=== PATIENT | female | born 1945 | race Caucasian/White ===

== ENCOUNTER 2016-12-02 03:54 | Emergency (ER) | payer OTHER ==
[~2016-12-02] VITALS: Ht 165.1 cm; Wt 68.0 kg
[2016-12-02] MEDS ORDERED: PAROXETINE CR25 MG (04:13)
[2016-12-02] MEDS ORDERED: METFORMIN HCL500 M3 PO (04:14)
[2016-12-02] MEDS ORDERED: SIMVASTATIN40 M1 PO (04:14)
[2016-12-02] MEDS ORDERED: AMLODIPINE BESY10 M1 PO (04:15)
[2016-12-02] MEDS ORDERED: VITAMIN C100 M2 (04:16)
[2016-12-02] MEDS ORDERED: ASPIRIN81 M4 PO (04:16)
[2016-12-02] MEDS ORDERED: VITAMIN D1000 UNIT PO (04:17)
[2016-12-02] MEDS ORDERED: VITAMIN B-121000 MC3 PO (04:18)
--- NOTE | 2016-12-02 04:38 | ED HEAD/FACIAL INJ COMPLAINT ---
History of Present Illness General Chief Complaint: Facial or Head Injury Stated Complaint: HEAD AND NECK INJURY AFTER ROLLING/FALLING OUT OF Source: patient, family, old records Exam Limitations: no limitations Vital Signs & Intake/Output Vital Signs & Intake/Output Vital Signs Date Time Temp Pulse Resp B/P Pulse O2 O2 Flow FiO2 Ox Delivery Rate 12/02 0708 97.0 80 18 150/67 96 Room Air 12/02 0419 Room Air 12/02 0408 97.8 83 20 182/81 98 Room Air Allergies Coded Allergies: NO KNOWN ALLERGIES (10/07/13) Reconcile Medications Amlodipine Besylate 10 MG TABLET 1 TAB PO DAILY HTN (Reported) Ascorbic Acid (Vitamin C) 100 MG TABLET SUPPLEMENT (Reported) Aspirin (Aspirin*) 81 MG TAB.CHEW 1 TAB PO DAILY HEART (Reported) Cholecalciferol (Vitamin D3) (Vitamin D) 1,000 UNIT TABLET 1 TAB PO DAILY SUPPLEMENT (Reported) Cyanocobalamin (Vitamin B-12) 1,000 MCG TABLET 1 TAB PO DAILY SUPPLEMENT ( Reported) Metformin HCl 500 MG TABLET 1 TAB PO BID PRE-DIABETES (Reported) Paroxetine HCl (Paroxetine Cr) 25 MG TAB.ER.24H MENTAL HEALTH (Reported) Simvastatin (Simvastatin*) 40 MG TABLET 1 TAB PO QPM HYPERLIPIDEMIA (Reported ) Triage Note: PT TO TRIAGE S/P FALLING OUT OF BED AND LANDING ON HEAD/NECK. PT DENIES DIZZINESS/BLURRED VISION. Triage Nurses Notes Reviewed? yes Onset: Just prior to arrival Severity: moderate Location: frontal Method of Injury: direct blow, fall Loss of Consciousness: no loss of consciousness Associated Symptoms: nausea/vomiting LMP (ages 10-50): post menopausal : No Patient currently breastfeeds: No HPI: Prior to admission patient fell out of bed striking her left forehead on the floor. She complains of left forehead scalp sharp severe pain associated with nausea left-sided neck pain constant. There was no loss consciousness fever chills vomiting diarrhea abdominal pain chest pain shortness of breath dysuria rash bleeding change in motor sensory function change in bowel bladder habit. Past History Travel History Traveled to [place] past 21 day No Medical History Any Pertinent Medical History? see below for history Cardiovascular: hyperlipidemia Musculoskeletal: osteoporosis, L HIP FX Endocrine: PRE-DIABETES Surgical History Surgical History: non-contributory Psychosocial History What is your primary language Slovenian Tobacco Use: Refused to answer Family History Hx Contributory? No Review of Systems Review of Systems Constitutional: Reports: no symptoms. EENTM: Reports: no symptoms. Respiratory: Reports: no symptoms. Cardiovascular: Reports: no symptoms. GI: Reports: see HPI, nausea. Genitourinary: Reports: no symptoms. Musculoskeletal: Reports: see HPI, neck pain. Skin: Reports: no symptoms. Neurological/Psychological: Reports: see HPI, headache. Hematologic/Endocrine: Reports: no symptoms. Immunologic/Allergic: Reports: no symptoms. All Other Systems: Reviewed and Negative Physical Exam Physical Exam General Appearance: well developed/nourished, mild distress Head: atraumatic, normal appearance, tenderness Eyes: Bilateral: normal appearance, PERRL, EOMI. Ears, Nose, Throat: normal pharynx, normal ENT inspection, hearing grossly normal Neck: normal inspection, supple, limited range of motion, tender lateral Respiratory: normal breath sounds, chest non-tender, no respiratory distress, quiet respiration, lungs clear Cardiovascular: regular rate/rhythm, normal peripheral pulses, norml femoral pulses equa Gastrointestinal: normal bowel sounds, soft, non-tender, no organomegaly Back: normal inspection Extremities: normal inspection, normal range of motion, no edema Psychiatric: awake, alert, oriented x 3 Cranial Nerves: normal hearing, normal speech, PERRL Coordination/Gait: normal finger to nose Motor/Sensory: no motor/sensory deficits Reflexes: 2+: bicep (R), bicep (L). Skin: intact, normal color, warm/dry Lymphatic: no anterior cervical asha Progress Differential Diagnosis: c-spine injury, ICH, skull fracture Plan of Care: Orders Procedure Date/time Status PROTHROMBIN TIME 12/02 525 Complete COMPREHENSIVE METABOLIC PANEL 12/02 525 Complete CBC WITHOUT DIFFERENTIAL 12/02 525 Complete Current Medications Sig/Mariza Start time Last Medication Dose Stop Time Status Admin Ondansetron HCl 4 MG ONCE ONE 12/02 814 UNVr (Zofran) 12/02 0816 Laboratory Tests 12/02/16 0542: Anion Gap 10, Estimated GFR > 60, BUN/Creatinine Ratio 21.4, Glucose 148 H, Calcium 10.4 H, Total Bilirubin 0.7, AST 29, ALT 25, Alkaline Phosphatase 95, Total Protein 7.7, Albumin 4.4, Globulin 3.3, Albumin/Globulin Ratio 1.3, PT 10.1, INR 0.96, CBC w Diff NO MAN DIFF REQ, RBC 4.43, MCV 89.1, MCH 29.5, RDW 13.9, MPV 6.6 L, Gran % 78.1 H, Lymphocytes % 15.2 L, Monocytes % 4.6, Eosinophils % 1.5, Basophils % 0.6, Absolute Granulocytes 9.7 H, Absolute Lymphocytes 1.9, Absolute Monocytes 0.6, Absolute Eosinophils 0.2, Absolute Basophils 0.1, PUBS MCHC 33.0 Diagnostic Imaging: Viewed by Me: CT Scan. Discussed w/RAD: CT Scan. Radiology Impression: There is no acute intracranial hemorrhage. There is an acute fracture of the left occipital condyle and an intra-articular fracture at the posterior margin of the left C1 lateral mass. Small bone fragments encroach on the left arcuate foramen, raising the concern for a left vertebral artery injury. If there are clinical symptoms of acute ischemia within the posterior circulation then a dedicated CT angiogram of the neck should be obtained for better anatomic characterization of the arterial anatomy., At the site of the known fracture of the left C1 lateral mass there is craniocaudal flattening of the profile of the distal V3 segment of the left vertebral artery as it passes through the arcuate foramen. No evidence of acute arterial dissection, occlusion , or distal embolic disease. Due to the presence of patient motion the degree of stenosis at the carotid bifurcations related to a heavily calcified atheromatous plaque cannot be accurately assessed on this examination. There is mild to moderate narrowing of the cavernous segment of the left internal carotid artery. Comments: Accepted by Dr. Liu RICKS as modified trauma. Departure Departure Time of Disposition: 800 Disposition: OTHER [facility] (ACUTE) Condition: Stable Clinical Impression Primary Impression: Closed C1 fracture Qualifiers: Encounter type: initial encounter Fracture morphology: unspecified fracture morphology Fracture alignment: displaced Qualified Code: S12.000A - Unspecified displaced fracture of first cervical vertebra, initial encounter for closed fracture Secondary Impressions: Unspecified occipital condyle fracture, initial encounter for closed fracture Referrals: POP TALBOT MD (PCP/Family) Departure Forms: Customer Survey General Discharge Information Critical Care Note Critical Care Note Critical Care Time: 30-74 min (35)
--- NOTE | 2016-12-02 05:11 | CT SCAN REPORT ---
EXAMINATION: CT HEAD AND CERVICAL SPINAL. CLINICAL INFORMATION: Fall. Left frontal head strike. Nausea, vomiting, and headache. COMPARISON: No relevant prior imaging available. TECHNIQUE: Mutton Puncher images were obtained. A CT acquisition of the head and cervical spinal was performed without the intravenous administration of contrast. Data was reformatted into multiplanar images at the acquisition workstation. DLP: 998.76 mGy-cm. FINDINGS: Head: There is no acute intracranial hemorrhage or abnormal extra-axial collection. Lateral and third ventricles are normal. No hydrocephalus. There are numerous ill-defined foci of hypoattenuation within the periventricular white matter that most likely represent a chronic manifestation of small vessel ischemia. Garcia-white matter differentiation is grossly preserved and there is no evidence of acute territorial infarct. There is an acute minimally impacted fracture of the left occipital condyle and a horizontally oriented fracture through the posterior margin of the left lateral C1 mass at the atlantooccipital joint best illustrated on axial image 7 of 256 series 7. Small bone fragments appear to encroach on the left arcuate foramen. The calvarium is otherwise intact. There is no mastoid or middle ear effusion. Mild paranasal sinus disease within the maxillary sinuses and ethmoid air cells. Globes and orbits are symmetric. Cervical spine: There is anatomic alignment and position of the vertebral bodies and posterior elements of the cervical spine in the sagittal dimension. Vertebral body heights are preserved. There is no abnormal prevertebral soft tissue swelling. There is advanced degenerative facet arthrosis at multiple levels within the cervical spine. Grossly no evidence of canal compromise. Limited visualization of the soft tissues of the neck reveals heavily calcified atheromatous plaque involving both carotid bifurcations. Lung apices are clear. No pathologically enlarged cervical lymph nodes. IMPRESSION: There is no acute intracranial hemorrhage. There is an acute fracture of the left occipital condyle and an intra-articular fracture at the posterior margin of the left C1 lateral mass. Small bone fragments encroach on the left arcuate foramen, raising the concern for a left vertebral artery injury. If there are clinical symptoms of acute ischemia within the posterior circulation then a dedicated CT angiogram of the neck should be obtained for better anatomic characterization of the arterial anatomy.
[2016-12-02 05:53] LABS: ABSOLUTE BASOPHIL COUNT 0.1 /CUMM (0.0-0.2); ABSOLUTE EOSINOPHIL COUNT 0.2 /CUMM (0.0-0.7); ABSOLUTE GRANULOCYTE CT 9.7 /CUMM (1.4-6.5); ABSOLUTE LYMPH COUNT 1.9 /CUMM (1.2-3.4); ABSOLUTE MONOCYTE COUNT 0.6 /CUMM (0.10-0.60); BASOPHIL % 0.6 % (0.0-2.0); EOSINOPHIL % 1.5 % (0-5); HEMATOCRIT 39.5 % (37-47); MEAN CORPUSCULAR HGB 29.5 PG (27.0-31.0); MEAN CORPUSCULAR VOLUME 89.1 FL (81.0-99.0); MEAN PLATELET VOLUME 6.6 FL (7.4-10.4); PLATELET COUNT 228 /CUMM (130-400); RBC DISTRIBUTION WIDTH 13.9 % (11.5-14.5); RED BLOOD CELL CT 4.43 /CUMM (4.20-5.40); WHITE BLOOD CELL COUNT 12.5 /CUMM (4.8-10.8)
[2016-12-02 05:56] LABS: GRANULOCYTE % 78.1 % (42.2-75.2)
[2016-12-02 05:57] LABS: PT 10.1 SEC (9.4-12.5)
--- NOTE | 2016-12-02 07:52 | CT SCAN REPORT ---
EXAMINATION: CT ANGIOGRAM NECK CLINICAL INFORMATION: Question left vertebral artery injury. COMPARISON: CT head same day. TECHNIQUE: Test bolus sequences followed by administration of 94 mL of Optiray 320 intravenous contrast. Helical imaging was performed in the axial plane of the neck. The data was processed at the computed tomography technologist workstation for generation of MIP sequences. Three-dimensional volume rendered reformatted images were also generated at an offline 3-D workstation. DLP: 845.17 mGy-cm FINDINGS: Patient motion degrades image quality particularly at the level of the carotid bifurcations therefore the diagnostic accuracy of this examination is significantly limited. Specifically degree of internal carotid artery stenosis cannot be effectively evaluated. The aortic arch apex is normal and the origins of the major aortic branches are patent. Common carotid arteries are patent. There is heavily calcified atheromatous plaque involving both carotid bifurcations. The degree of internal carotid carotid artery stenosis cannot be effectively evaluated. The cervical segments of internal carotid arteries are unremarkable. The cervical segments of the vertebral arteries as well as their origins are patent. At the site of the known left C1 lateral mass fracture there is craniocaudal flattening of the profile of the left vertebral artery at its distal left V3 segment. No evidence of acute arterial dissection, occlusion, or distal embolic disease. Heavily calcified plaque causes mild to moderate narrowing of the cavernous segment of the left internal carotid artery. The intradural vertebral artery segments and basilar artery are patent. Visualized portions of the anterior, middle, and posterior cerebral artery complexes are normal. IMPRESSION: At the site of the known fracture of the left C1 lateral mass there is craniocaudal flattening of the profile of the distal V3 segment of the left vertebral artery as it passes through the arcuate foramen. No evidence of acute arterial dissection, occlusion, or distal embolic disease. Due to the presence of patient motion the degree of stenosis at the carotid bifurcations related to a heavily calcified atheromatous plaque cannot be accurately assessed on this examination. There is mild to moderate narrowing of the cavernous segment of the left internal carotid artery.
[2016-12-02 08:15] VITALS: BP 153/69
== END 2016-12-02 08:37 | disposition short-term general hospital (02) ==
LOC: ERH 03:54
PROVIDERS: Emergency Medicine
DX: S12.090A Other displaced fracture of first cervical vertebra, initial encounter for closed fracture (principal); S02.113A Unspecified occipital condyle fracture, initial encounter for closed fracture; W06.XXXA Fall from bed, initial encounter; Y92.9 Unspecified place or not applicable; Y93.9 Activity, unspecified
CPT/HCPCS: 96374; 96375; 96376; J1885; J2405